=== PATIENT | female | born 1960 | race Two or more races ===

== ENCOUNTER 2025-07-30 09:30 | Emergency (ER) | payer MEDICAID, SELFPAY ==
[2025-07-30 09:31] VITALS: BMI 23.3
[2025-07-30 09:52] VITALS: BP 145/80; PULSE 82; RESP 17; TEMP 37.2; O2SAT 98
--- NOTE | 2025-07-30 10:34 | PD.EDRME ---
Rapid Medical Screening Exam RME Arrival date/time: 07/30/25 09:30 This is a 65-year-old female that comes into the emergency room with complaints of abdominal pain and diarrhea for a few days now. Patient states she had 1 episode of vomiting. Patient reports history of diabetes. I have greeted and performed a focused initial assessment of this patient. Initial appropriate labs ordered at this time. A comprehensive ED assessment and evaluation of the patient and analysis of all test and completion of medical decision making process will be conducted by additional ED provider. Chief Complaint: Nausea/Vomiting/Diarrhea Time Seen by Provider: 07/30/25 09:39 Vital signs: Vital Signs Temperature 98.9 F 07/30/25 09:52 Pulse Rate 82 07/30/25 09:52 Respiratory Rate 17 07/30/25 09:52 Blood Pressure 145/80 H 07/30/25 09:52 Pulse Oximetry (%) 98 07/30/25 09:52 Oxygen Delivery Method Room Air 07/30/25 09:52
[2025-07-30 10:44] LABS: Collection Type, Urine Clean Catch
[2025-07-30 11:18] LABS: Basophils # (Auto) 0.1 Thou/mm3 (0.0-0.2); Basophils % (Auto) 1 % (0-2.5); Eosinophils # (Auto) 0.3 Thou/mm3 (0.0-0.5); Eosinophils % (Auto) 3 % (0-10); Hematocrit 34.8 % (36.0-46.0); Hemoglobin 11.2 g/dL (12.0-16.0); Immature Granulocytes Auto 0.05 Thou/mm3 (0.00-0.00); Lymphocytes # (Auto) 2.0 Thou/mm3 (1.0-4.8); Lymphocytes % (Auto) 23 % (10-50); Mean Corpuscular HGB Conc 32.2 g/dl (31.0-37.0); Mean Corpuscular Hemoglobin 28.1 pg (25.0-35.0); Mean Corpuscular Volume 87 fL (80-100); Monocytes # (Auto) 0.9 Thou/mm3 (0.0-0.8); Monocytes % (Auto) 11 % (0-12); Neutrophils # (Auto) 5.3 Thou/mm3 (1.8-7.7); Neutrophils % (Auto) 62 % (37-80); Nucleated Red Blood Cell # 0.00 Thou/mm3 (0.00-0.00); Nucleated Red Blood Cell % 0 /100 WBC (0); Platelet Count 431 Thou/mm3 (140-440); RDW Standard Deviation 43.3 fL (36.4-46.3); Red Blood Count 3.99 Miln/mm3 (4.00-5.20); White Blood Count 8.6 Thou/mm3 (3.6-11.0)
[2025-07-30 11:23] LABS: Alanine Aminotransferase 10 U/L (10-49); Albumin, Serum 3.8 gm/dL (3.4-4.8); Albumin/Globulin Ratio 1.5 (1.2-2.2); Alkaline Phosphatase 119 U/L (46-116); Anion Gap 8 (7-16); Aspartate Amino Transferase 12 U/L (0-34); BUN/Creatinine Ratio 22 Ratio (12-20); Bilirubin,Total 0.4 mg/dL (0.3-1.2); Blood Urea Nitrogen 11 mg/dL (9-23); Calcium 8.6 mg/dL (8.3-10.6); Calcium (Corrected) 8.8 mg/dL (8.5-10.1); Carbon Dioxide 29.6 mMol/L (20.0-31.0); Chloride 104 mMol/L (98-107); Creatinine (Component) 0.5 mg/dL (0.6-1.3); Estimated Creatinine Clearance 99.6 mL/min (>60); Globulin 2.5 gm/dL (2.3-3.5); Glucose 107 mg/dL (74-106); Lipase 19 U/L (12-53); Osmolality,Calculated 282 (275-295); Potassium 3.2 mMol/L (3.4-5.1); Sodium 142 mMol/L (136-145); Total Protein 6.3 gm/dL (5.7-8.2); eGFR > 60 See Note
[2025-07-30 11:29] LABS: Bilirubin,Urine Negative (Negative); Blood,Urine Negative (Negative); Clarity,Urine Clear (Clear/Hazy); Color,Urine Yellow (Lt Yel-Yel); Culture Indicated,Urine Not Indicated; Glucose, Urine Negative (Negative); Ketones,Urine Negative (Negative); Leukocyte Esterase,Urine Negative (Negative); Nitrite,Urine Negative (Negative); PH,Urine 6.0 (5.0-7.0); Protein,Urine Trace (Neg - Trace); RBC,Urine 1 /hpf (0-3); Specific Gravity,Urine 1.032 (1.001-1.035); Squamous Epithelial Cell,Urine 3 /hpf (0-5); Urobilinogen,Urine Negative mg/dL (0.0-1.0); WBC,Urine 3 /hpf (0-5)
--- NOTE | 2025-07-30 12:35 | PD.EDNV ---
Nausea/Vomit./Diarrhea-RME/HPI General Chief complaint: Nausea/Vomiting/Diarrhea Stated complaint: DIARRHEA X4 DAYS WITH WEAKNESS Time Seen by Provider: 07/30/25 09:39 Arrival date/time: 07/30/25 09:30 Limitations: no limitations RME / HPI RME / HPI Narrative: 07/30/25 09:30 This is a 65-year-old female that comes into the emergency room with complaints of abdominal pain and diarrhea for a few days now. Patient states she had 1 episode of vomiting. Patient reports history of diabetes. I have greeted and performed a focused initial assessment of this patient. Initial appropriate labs ordered at this time. A comprehensive ED assessment and evaluation of the patient and analysis of all test and completion of medical decision making process will be conducted by additional ED provider. 12p Dr. Hu assessment Patient is a 65-year-old female with medical history notable for diabetes, hypertension, hyperlipidemia, medication noncompliance is seen emerged from concerns for 3 days of diarrhea as well as 1 day of vomiting. Denies fever, cough, runny nose, chest pain, abdominal pain, melena, bloody stools. Patient has had multiple surgeries to her belly. Patient recently returned from [place] approximately 1 week ago with finding to a sick family member there. Related Data Home Medications ?Medication ?Instructions ?Recorded ?Confirmed ketorolac 10 mg tablet 10 mg PO Q6H PRN Pain 11/30/17 11/30/17 Previous Rx's ?Medication ?Instructions ?Recorded hydrocodone 5 mg-acetaminophen 325 1 tab PO Q6H PRN pain #20 tabs 12/01/17 mg tablet (Marcus [place]) pantoprazole 20 mg tablet,delayed 20 mg PO QDAY #20 tabs 12/09/22 release (Protonix) Allergies Allergy/AdvReac Type Severity Reaction Status Date / Time No Known Allergies Allergy Verified 07/30/25 09:34 ED Exam General Limitations: Present no limitations General appearance: Present alert and in no apparent distress Head Head exam: Present atraumatic and normocephalic Eye Eye exam: Present normal appearance, PERRL and EOMI ENT ENT exam: Present normal exam, normal oropharynx and mucous membranes moist Neck Neck exam: Present normal inspection and full ROM Chest Chest inspection: Present normal inspection and symmetric chest wall rise Respiratory Respiratory exam: Present normal lung sounds bilaterally; Absent respiratory distress or wheezes Cardiovascular Cardiovascular exam: Present regular rate and normal rhythm Abdominal Exam Abdominal exam: Present soft; Absent distention, tenderness or guarding Back Exam Back exam: Present normal inspection Neurological Exam Neurological exam: Present alert, oriented X3, CN II-XII intact and normal gait Psychiatric Psychiatric exam: Present normal affect Skin Skin exam: Present warm, dry and intact Course Quality Measures none Orders Category Date Time Status CBC Stat Lab 07/30/25 10:28 Completed Comprehensive Metabolic Panel Stat Lab 07/30/25 10:28 Completed Lipase Stat Lab 07/30/25 10:28 Completed Urinalysis, C/S if Indicated Stat Lab 07/30/25 10:28 Completed Potassium Chloride [K-Dur] Med 07/30/25 12:47 Once 40 meq PO X1 ONE Vital Signs Vital signs: Vital Signs Temperature 98.9 F 07/30/25 09:52 Pulse Rate 82 07/30/25 09:52 Respiratory Rate 17 07/30/25 09:52 Blood Pressure 145/80 H 07/30/25 09:52 Pulse Oximetry (%) 98 07/30/25 09:52 Oxygen Delivery Method Room Air 07/30/25 09:52 Nausea/Vomiting/Diarrhea MDM Narrative MDM Narrative:: Patient is a 65-year-old female seen emerged from concerns for vomiting and diarrhea. Vital signs and exam as listed. Concern for viral syndrome, metabolic derangement. Patient without any chest pain, less likely ACS. No abdominal pain less likely acute intra-abdominal pathology. Patient nonseptic nontoxic-appearing at this time tolerating oral intake no longer nauseated. Ordered labs after medication for symptom relief. Labs without leukocytosis, no left shift. Hemoglobin is 11 which is the patient's baseline. Patient potassium is 3.2 will replete in the emergency department otherwise no acute metabolic derangements, urinalysis without evidence of infection. On reevaluation patient hemodynamically stable not in distress tolerating oral intake. Will discharge home close return precautions follow-up with primary care doctor as well as recommendation that she hydrate well. Patient data External records reviewed:: [facility] previous records Clinical information provided by:: patient Social determinants that could affect healthcare access:: none Patient has the following chronic illnesses:: See MDM How is presenting disease/condition affected by chronic disease/condition?: uneffected by Evaluation data The following diagnostics were reviewed and interpreted by me:: lab results Lab and/or radiology exams considered but not ordered:: None Interpretation Summary: See MDM Medications / Prescriptions Medications / Prescriptions considered but not ordered:: None Medication administrations:: Medication Administration History Potassium Chloride (Potassium Chloride 20 Meq Tabcr) 40 meq PO X1 ONE Stop: 07/30/25 12:48 See above Consultations Consultation(s) initiated? (list below): No Diagnosis Nausea Differential Diagnosis: other (See MDM) Most likely diagnosis given after review of the tests above:: Diarrhea, vomiting, hypokalemia Admission Indicated Admission indicated?: not indicated Admission Request Was there a request for admission?: No Disposition Plan Disposition Plan: Discharge Discharge Attestation Discharge Attestation: The patient and all family members were given an opportunity to ask questions and understood the discharge instructions. Discharge instructions specifically effects, indications for sooner follow up or return to the emergency department, and the expected course of current diagnosis. Patient condition: Stable Discharge Plan Plan Patient Disposition: HOME (Self Care) Prescriptions/Referrals Prescriptions/Med Rec: No Action ketorolac 10 mg Tablet 10 mg PO Q6H PRN (Reason: Pain) hydrocodone-acetaminophen [[place]] 5-325 mg tablet 1 tab PO Q6H MDD 10 PRN (Reason: pain) Qty: 20 0RF pantoprazole [Protonix] 20 mg tablet,delayed release (DR/EC) 20 mg PO QDAY Qty: 20 1RF Referrals: Camilo Samano [Primary Care Provider] - In 1 week Problem List Clinical Impression: Diarrhea, Vomiting, Hypokalemia Patient/Caregiver Discharge Instructions Education Materials: ED Diarrhea, Unknown Cause, ED Hypokalemia Additional Instructions: Por favor, hidr?tese isa. Regrese inmediatamente si tiene s?ntomas que empeoran o s?ntomas preocupantes. Print Language: Lao Stand Alone Forms: Betsey Award Info., Patient Portal Info Letter
== END 2025-07-30 13:03 | disposition home or self-care (01) ==
PROVIDERS: Nurse Practitioner Family; Emergency Provider Emergency Medicine; PCP Physician Assistant
DX: R11.2 Nausea with vomiting, unspecified (principal); E11.9 Type 2 diabetes mellitus without complications; E78.5 Hyperlipidemia, unspecified; E87.6 Hypokalemia; I10 Essential (primary) hypertension
CPT/HCPCS: 36415; 80053; 81001; 83690; 85025; 99283; A9270